=== PATIENT | male | born 1935 | race Caucasian/White ===

== ENCOUNTER 2016-06-21 15:12 | Emergency (ER) | payer MEDICARE ==
[~2016-06-21] VITALS: Ht 182.9 cm; Wt 100.0 kg
[2016-06-21 15:15] VITALS: BP 198/87; PULSE 58; RESP 20; TEMP 97.9; O2SAT 95
--- NOTE | 2016-06-21 16:32 | PD ---
Physical Exam Time Seen by Provider: 16:30 Narrative 80 YEAR OLD MALE PRESENTS TO THE ED FOR EVALUATION FOLLOWING A TRIP AND FALL ON THE POOL DECK. HE HIT HIS HEAD. HE DID NOT LOSE CONSCIOUSNESS. HE REPORTS NO PAIN. NO VISUAL CHANGES. NO NAUSEA OR VOMITING. NO OTHER SYMPTOMS TO REPORT. PT IS ON WARFARIN. Data Data Last Documented VS Vital Signs Date Time Temp Pulse Resp B/P Pulse Ox O2 Delivery O2 Flow Rate FiO2 06/21/16 15:15 97.9 58 20 198/[address] Brain W/O Iv Contrast(Rout) (06/21/16 ) Tetanus/Diphtheria Tox Adult (Tetanus/Di (06/21/16 19:15) Prothrombin Time / Inr (Pt) (06/21/16 19:14) MDM Medical Record Reviewed: Yes Supervised Visit with RUBENS: No Condition: Stable Gracie Jacome Jun 21, 2016 16:32
--- NOTE | 2016-06-21 17:01 | RADRPT ---
EXAM DATE/TIME: 06/21/2016 16:51 [facility] COMPARISON: No previous studies available for comparison. INDICATIONS : Fall and hit head today. RADIATION DOSE: 44.63 CTDIvol (mGy) MEDICAL HISTORY : Cardiovascular disease. SURGICAL HISTORY : None. ENCOUNTER: Initial ACUITY: 1 day PAIN SCALE: 0/10 LOCATION: cranial TECHNIQUE: Multiple contiguous axial images were obtained of the head. Using automated exposure control and adj ustment of the mA and/or kV according to patient size, radiation dose was kept as low as reasonably a chievable to obtain optimal diagnostic quality images. FINDINGS: CEREBRUM: The ventricles are normal for age. Mild bilateral cortical atrophy. No evidence of midline shift, mas s lesion, hemorrhage or acute infarction. No extra-axial fluid collections are seen. POSTERIOR FOSSA: The cerebellum and brainstem are intact. The 4th ventricle is midline. The cerebellopontine angle i s unremarkable. EXTRACRANIAL: The visualized portion of the orbits is intact. Chronic sinus disease the left maxillary sinus. SKULL: The calvaria is intact. No evidence of skull fracture. CONCLUSION: Normal examination for a patient of this age. Chronic sinus disease in the left maxillary sinus. Jason Damico MD on June 21, 2016 at 16:58 Board Certified Radiologist. This report was verified electronically.
[2016-06-21] MEDS ORDERED: LEVO.05 PO (19:11)
[2016-06-21] MEDS ORDERED: METO25TA3 PO (19:11)
[2016-06-21] MEDS ORDERED: [UNRECOGNIZED DRUG - OTHER] PO (19:11)
[2016-06-21] MEDS ORDERED: LANO0.2510 PO (19:11)
[2016-06-21] MEDS ORDERED: ZOCO40TA PO (19:11)
[2016-06-21] MEDS ORDERED: AMIO200T PO (19:11)
[2016-06-21] MEDS ORDERED: WARF-23 PO (19:11)
[2016-06-21] MEDS ORDERED: FURO20TA PO (19:11)
[2016-06-21] MEDS ORDERED: TETANUS/DIPHTHERIA TOXOID ADULT 0.5 ML VIAL IM ONE (19:15)
--- NOTE | 2016-06-21 19:17 | PD ---
HPI Chief Complaint: Fall Time Seen by Provider: 19:10 Travel History International Travel<30 days: No Contact w/Intl Traveler<30days: No Traveled to known affect area: No History of Present Illness HPI This is a 80-year-old male who is on Coumadin. He presents for evaluation after a mechanical fall. At 1 PM today the patient tripped and fell next to his pool, striking his head against the ground. He denies loss of consciousness. He now has abrasions to the left knee and leg, left forehead, some subconjunctival hemorrhaging in the left eye. He denies any headache, pain in the neck or back or extremities, confusion or amnesia, nausea or vomiting, blurred vision, pain in the eye. His last INR on June 14 was 3.1. Last tetanus vaccination unknown. No other complaints. 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[place], CABG) Social History Alcohol Use: Yes Tobacco Use: Yes Allergies-Medications (Allergen,Severity, Reaction): Coded Allergies: No Known Allergies (Unverified , 06/21/16) Reported Meds & Prescriptions Reported Meds & Active Scripts Active Reported Synthroid (Levothyroxine Sodium) 50 Mcg Tab 50 Mcg PO DAILY Furosemide 20 Mg Tab 0.05 Mg PO DAILY [[id number]] 10 Meq PO DAILY@0600 Warfarin 5 Mg Tab 5 Mg PO DAILY Lanoxin (Digoxin) 0.25 Mg Tab 0.25 Mg PO DAILY Zocor (Simvastatin) 40 Mg Tab 40 Mg PO DAILY Metoprolol Tartrate 25 Mg Tab 25 Mg PO DAILY Amiodarone (Amiodarone HCl) 200 Mg Tab 200 Mg PO DAILY Review of Systems Except as stated in HPI: all other systems reviewed are Neg Physical Exam Narrative GENERAL: Well-developed well-nourished male in no acute distress SKIN: Warm and dry. Abrasions noted to the right knee, left leg left forehead. HEAD: Skin as noted above. Normocephalic. EYES: Pupils equal and round reactive to light extraocular muscles are intact. Left eye subconjunctival hemorrhages present. No hyphema, no hypopyon, no pain with extraocular range of motion ENT: No nasal bleeding or discharge. Mucous membranes pink and moist. NECK: Trachea midline. No JVD. CARDIOVASCULAR: Regular rate and rhythm. No murmur appreciated. RESPIRATORY: No accessory muscle use. Clear to auscultation. Breath sounds equal bilaterally. GASTROINTESTINAL: Abdomen soft, non-tender, nondistended MUSCULOSKELETAL: No obvious deformities. No bony tenderness to palpation. Full range of motion of the neck, upper or lower extremities, normal gait. NEUROLOGICAL: Awake and alert. No obvious cranial nerve deficits. Motor grossly within normal limits. Normal speech. Data Data Last Documented VS Vital Signs Date Time Temp Pulse Resp B/P Pulse Ox O2 Delivery O2 Flow Rate FiO2 06/21/16 15:15 97.9 58 20 198/[address] Brain W/O Iv Contrast(Rout) (06/21/16 ) Tetanus/Diphtheria Tox Adult (Tetanus/Di (06/21/16 19:15) Prothrombin Time / Inr (Pt) (06/21/16 19:14) Labs Laboratory Tests Test 06/21/16 19:58 Prothrombin Time 45.5 SEC Prothromb Time International 3.9 RATIO Ratio MDM Medical Decision Making Medical Screen Exam Complete: Yes Emergency Medical Condition: Yes Medical Record Reviewed: Yes Differential Diagnosis Abrasion, contusion, fracture, intracranial hemorrhage, subconjunctival hemorrhage Narrative Course 80-year-old male presents after mechanical fall. He has no pain but he has some left eye subconjunctival hemorrhage, some abrasions to the left forehead, right knee and left leg. CT of the brain ordered in triage reveals no acute abnormalities. He has no focal neurologic deficits. His INR is mildly subtherapeutic at 3.9. He is currently supposed to be taking 5 mg of Coumadin a day. He did not take today's dose. Recommended not taking today's dose, taking a half dose tomorrow and following up closely with his primary care physician. Discussed returning for any new or worsening symptoms such as headache, any neurologic change and he is agreeable. Tetanus status updated. He is stable for discharge. Diagnosis Primary Impression: Abrasions of multiple sites Additional Impressions: Subconjunctival hemorrhage Qualified Code: H11.32 - Subconjunctival hemorrhage, left Supratherapeutic INR Additional Instructions: As discussed, take half dose of Coumadin tomorrow. Follow up closely with primary care physician in the next few days to have INR rechecked. Wash the wounds daily with soap and water and apply antibiotic cream and clean bandages. Return for any new or worsening symptoms such as headache, confusion, vomiting , weakness Med/Other Pt SpecificInfo: Wound Care Disposition: 01 DISCHARGE HOME Condition: Stable Willis Ruelas Jun 21, 2016 19:17
[2016-06-21 20:33] LABS: INTERNATIONAL NORMALIZED RATIO 3.9 RATIO; PROTHROMBIN TIME - PATIENT 45.5 SEC (9.8-11.6)
[2016-06-22] MEDS ORDERED: K-TA10TA PO (15:55)
== END 2016-06-21 21:36 | disposition home or self-care (01) ==
LOC: NEPB 15:12
DX: H11.32 Conjunctival hemorrhage, left eye (principal); S80.212A Abrasion, left knee, initial encounter; S00.81XA Abrasion of other part of head, initial encounter; R79.1 Abnormal coagulation profile; F10.10 Alcohol abuse, uncomplicated; Z72.0 Tobacco use; Z79.01 Long term (current) use of anticoagulants; I25.2 Old myocardial infarction; Z95.1 Presence of aortocoronary bypass graft; Z23 Encounter for immunization; W01.198A Fall on same level from slipping, tripping and stumbling with subsequent striking against other object, initial encounter; Y93.89 Activity, other specified; Y92.095 Swimming-pool of other non-institutional residence as the place of occurrence of the external cause; Y99.9 Unspecified external cause status
CPT/HCPCS: 70450; 85610; 90471; 90714